=== PATIENT | female | born 1955 | race Caucasian/White ===

== ENCOUNTER 2023-02-20 08:43 | Outpatient (AMB) | payer BC, SELFPAY ==
--- NOTE | 2023-02-20 09:00 | A.OFFPC_ITS ---
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 Physical Grand Scribe Required: No Accompanied by: Self / Same As Patient Allergies No Known Allergies Allergy (Verified 02/20/23 09:17) Medication List - Last Reconciled 02/20/23 by DARIA Beaver alendronate 70 mg PO QWEEK atorvastatin 80 mg PO DAILY Tobacco use date assessed: 02/20/23 Fall risk assessment: No Falls in past year Last assessed Fall Risk: 02/20/23 Dental Screening Dental Screen Date: 02/20/23 Did you have a dental visit in the last 12 months?: Yes Did you have a dental problem in the last 6 months where you did not have access to dental care?: No Was dental information given to patient?: Patient has dentist HPI HPI Comments History of Present Illness Details 67-year-old female new patient presents today to establish care. Past medical history significant for hypercholesteremia, osteoporosis. Patient states ringing in right ear since october, urgent care and was diagnosed with tinnitus. Patient states felt like ear was plugged. Denies ear pain and fevers. Patient does report that she feels like she has been having to listen to the TV louder than normal. On examination bilateral canals clear TMs pearly. Low referred speech and hearing hearing test. Previous pcp: Dr. Levy, [facility] Medical History (Updated 02/20/23 @ 10:26 by DARIA Beaver) Hyperlipidemia Osteoporosis Squamous cell skin cancer, face Surgical History (Updated 02/20/23 @ 09:21 by DARIA Beaver) H/O wisdom tooth extraction Family History (Updated 02/20/23 @ 09:24 by DARIA Beaver) Mother History of open heart surgery Dementia Father Diabetes Brother Leukemia Sister No problems noted. Brother No problems noted. Other Substance abuse Social History (Updated 02/20/23 @ 09:25 by DARIA Beaver) Housing: House Alcohol intake: never Patient Tobacco Use Status: Former Tobacco user Quit Date: 2000 e-Cigarette/Vaping Use: Never Used service: No Current occupational status: employed Cognitive needs: No Hearing needs: No Vision needs: No Questionnaire PHQ-9 Over the last 2 weeks, how often have you been bothered by any of the following problems? 1. Little interest or pleasure in doing things: not at all 2. Feeling down, depressed, or hopeless: not at all 3. Trouble falling or staying asleep, or sleeping too much: not at all 4. Feeling tired or having little energy: not at all 5. Poor appetite or overeating: not at all 6. Feeling bad about yourself - or that you are a failure or have let yourself or your family down: not at all 7. Trouble concentrating on things, such as reading the newspaper or watching television: not at all 8. Moving or speaking so slowly that other people could have noticed. Or the opposite - being so fidgety or restless that you have been moving around a lot more than usual: not at all 9. Thoughts that you would be better off or of hurting yourself in some way: not at all Total score: 0 Depression Screening Interpretation: Positive Source: Developed by Drs. Gordon Beltre, Mara Flores, Keven Galdamez and colleagues, with an educational chanda from [employer]. Thrive Questionnaire Date Thrive assessed: 02/20/23 I am a: Patient What is your living situation today?: I have a steady place to live Within the past 12 months, did the food you bought not last and you didn't have the money to get more?: Never true Within the past 12 months, did you worry whether your food would run out before you got money to buy more?: Never true Do you have trouble paying for medicines?: No Do you have trouble getting transportation to medical appointments?: No Do you have trouble paying your heating and electricity bill?: No Do you have trouble taking care of your child, family member or friend?: No Do you have trouble with day-to-day activities such as bathing, preparing meals, shopping, managing finances, etc.?: No Are you currently unemployed and looking for a job?: No Are you interested in more education?: No Please select the resources that you would like help with: None Currently or been in a relationship where the following occur: no concerns reported AUDIT C Alcohol Use Questionnaire (AUDIT-C) 1. How often do you have a drink containing alcohol?: Never Total Score: 0 SHAYNE-7 AMB Questionnaire SHAYNE-7 Date SHAYNE - 7 assessed: 02/20/23 Feeling nervous, anxious, or on edge: 0 = Not at all Not being able to stop or control worryin = Not at all Worrying too much about different things: 0 = Not at all Trouble relaxin = Not at all Being so restless that it is hard to sit still: 0 = Not at all Becoming easily annoyed or irritable: 0 = Not at all Feeling afraid as if something awful might happen: 0 = Not at all Total SHAYNE-7 score (0-4 normal; 5-9 mild; 10-14 moderate; 15-21 severe): 0 Source: Developed by Drs. Gordon Beltre, Mara Flores, Keven Galdamez and colleagues, with an educational chanda from [employer]. SHAYNE-7 Assessment Billing SHAYNE-7 Assessment Tool: SHAYNE-7 Assessment 32214 Review of Systems Const Denies chills, Denies fatigue, Denies fever(s) and Denies poor appetite Eyes Denies no additional complaints ENT Reports Normal hearing present Card Denies chest pain, Denies syncope, Denies rapid heart rate and Denies dyspnea Resp Denies cough and Denies dyspnea GI Denies change in stool character, Denies constipation, Denies diarrhea, Denies nausea and Denies vomiting Denies urinary frequency, Denies dysuria and Denies urinary urgency Neuro Reports Normal hearing present, Denies confusion and Denies syncope Psych Denies confusion Endo Denies fatigue Physical exam (Primary Care) Vital Signs: Last Vital Signs Pulse 70 02/20/23 09:01 BP 110/78 02/20/23 09:01 Pulse Ox 99 02/20/23 09:01 Oxygen Delivery Method Room Air 02/20/23 09:01 BMI result Body Mass Index 22.3 Tobacco/Smoking Status: Tobacco use Status Tobacco use date assessed 02/20/23 02/20/23 09:12 Patient Tobacco Use Status Former Tobacco user 02/20/23 09:25 e-Cigarette/Vaping Use Never Used 02/20/23 09:25 PHQ-9: PHQ-9 Score PHQ-9: Total score 0 02/20/23 10:28 Depression Screening Interpretation: Positive Thrive Assessment: Date of Thrive Assessment Date Thrive assessed 02/20/23 02/20/23 09:12 Currently or been in a relationship where the following occur: no concerns reported Const General: No confusion Orientation/consciousness: No confusion HENMT Head: Yes normocephalic and Yes atraumatic Eyes Conjunctivae: conjunctivae normal Chest Chest palpation & inspection: normal inspection of the chest Resp Effort & Inspection: normal respiratory effort Auscultation: clear to auscultation bilaterally, no crackles, no rhonchi and no wheezes Cardio Rate: regular rate Rhythm: regular rhythm Heart sounds: S1 normal heart sound present and S2 normal heart sound present GI Inspection: Yes normal to inspection Neuro General: No confusion Cranial nerves: Yes Normal hearing present Extrem General: No edema Assessment and Plan Assessment & Plan (1) Tinnitus, right ear: Code(s): H93.11 - Tinnitus, right ear Plan: Referral entere to speech and hearing for hearing test. (2) Hyperlipidemia: Code(s): E78.5 - Hyperlipidemia, unspecified Plan: Fasting lipid panel ordered. Continue on atorvastatin 80 mg daily, prescription sent to patient's pharmacy. (3) Osteoporosis: Code(s): M81.0 - Age-related osteoporosis without current pathological fracture Plan: Continue on alendronate 70 mg weekly Most recent bone density completed 09/15/22 showed osteopenia Plan Follow up in 2 months for physical exam Orders: Orders Comprehensive [place]. Panel Fast Today E78.5 - Hyperlipidemia, unspecified Lipid Panel Today Z13.220 - Encounter for screening for lipoid disorders TSH reflex Free T4 Today Z13.29 - Encounter for screening for other suspected endocrine disorder Vitamin D 25-OH Total Today M85.80 - Other specified disorders of bone density and structure, unspecified site Complete Blood Count Auto Diff Today Z13.0 - Encounter for screening for diseases of the blood and blood-forming organs and certain disorders involving t he immune mechanism Referrals Speech and Hearing Referral E78.5 - Hyperlipidemia, unspecified, H93.11 - Tinnitus, right ear Endocrinology Referral M81.0 - Age-related osteoporosis without current pathological fracture Medications: New atorvastatin 80 mg PO DAILY 30 tabs 3RF E78.5 - Hyperlipidemia, unspecified Coding Level of Care Code New Pt Level 3 (65629) Diagnoses Tinnitus, right ear H93.11 Hyperlipidemia E78.5 Osteoporosis M81.0 Additional Codes SHAYNE-7 Assessment Billing - SHAYNE-7 Assessment Tool: SHAYNE-7 Assessment 91605 ([id number])
[2023-02-20 09:01] VITALS: BP 110/78; PULSE 70; O2SAT 99; BMI 22.3
== END 2023-02-20 09:42 | disposition home or self-care (01) ==
PROVIDERS: PCP Nurse Practitioner Family; Visit Provider Nurse Practitioner Family
DX: H93.11 Tinnitus, right ear (principal); E78.5 Hyperlipidemia, unspecified; M81.0 Age-related osteoporosis without current pathological fracture
CPT/HCPCS: 99203

== ENCOUNTER 2023-04-21 09:15 | Outpatient (REF) | payer BC, SELFPAY ==
[2023-04-21 11:23] LABS: MANUAL DIFF FLAG NO
[2023-04-21 11:50] LABS: Basophils Absolute Auto 0.1 X10*3/uL (0.0-0.2); Basophils Percent Auto 1.8 % (0-2); Eosinophils Absolute Auto 0.1 X10*3/uL (0.0-0.4); Eosinophils Percent Auto 1.5 % (0-4); Hematocrit 39.9 % (37.0-47.0); Hemoglobin 13.2 g/dl (12.0-16.0); Imm Gran Abs Auto 0.01 X10*3/uL (0.00-0.03); Imm Gran Pct Auto 0.2 % (0.0-0.4); Lymphocytes Absolute Auto 1.9 X10*3/uL (1.2-4.9); Lymphocytes Percent Auto 31.7 % (20-40); Mean Corpuscular HGB Conc 33.1 g/dl (31.0-35.0); Mean Corpuscular Hemoglobin 30.8 pg (27.0-33.0); Mean Platelet Volume 10.4 fL (9.4-12.3); Monocytes Absolute Auto 0.6 X10*3/uL (0.1-1.2); Monocytes Percent Auto 9.2 % (2-11); Neutrophils Absolute Auto 3.4 x10*3/uL (2.0-8.3); Neutrophils Percent Auto 55.6 % (45-73); Platelet Count 370 X10*3/uL (160-400); Red Blood Count 4.29 X10*6/uL (4.20-5.50); Red Cell Distribution Width 13.1 % (11.0-16.0); White Blood Count 6.1 X10*3/uL (4.8-10.8)
[2023-04-21 12:14] LABS: Alanine Aminotransferase 19 U/L (0-31); Albumin Level 4.8 g/dL (3.5-5.0); Alkaline Phosphatase 51 U/L (39-117); Anion Gap 13 (12-20); Aspartate Amino Transferase 22 U/L (5-31); Bilirubin Total 0.7 mg/dL (0.0-1.0); Blood Urea Nitrogen 15 mg/dL (9-16); Carbon Dioxide 27 mmol/L (22-29); Chloride 106 mmol/L (96-108); Cholesterol 196 mg/dL (<200); Creatinine Clr Calc Pharmacy 47.4; Estimated Glomerular Filt Rate > 60; Glucose Fasting 97 mg/dL (60-99); HDL Cholesterol 73 mg/dL (>40); LDL Cholesterol Calculated 110 mg/dL (<100); Potassium 4.6 mmol/L (3.3-5.1); Sodium 141 mmol/L (135-145); Total Protein 7.4 g/dL (6.5-8.0); Triglycerides 67 mg/dL (<150)
[2023-04-21 12:19] LABS: Vitamin D 25-OH Total 29.5 ng/mL (>30)
== END 2023-04-21 09:16 | disposition home or self-care (01) ==
LOC: HO.HMGCLDS 09:15
PROVIDERS: PCP Nurse Practitioner Family; Visit Provider Nurse Practitioner Family
DX: Z13.0 Encounter for screening for diseases of the blood and blood-forming organs and certain disorders involving the immune mechanism (principal); Z13.220 Encounter for screening for lipoid disorders; Z13.29 Encounter for screening for other suspected endocrine disorder; E78.5 Hyperlipidemia, unspecified; M85.80 Other specified disorders of bone density and structure, unspecified site
CPT/HCPCS: 36415; 80053; 80061; 82306; 84443; 85025

== ENCOUNTER 2023-04-24 09:15 | Outpatient (AMB) | payer BC, SELFPAY ==
[2023-04-24 09:22] VITALS: BP 116/68; PULSE 67; O2SAT 100; BMI 23.6
--- NOTE | 2023-04-24 09:22 | A.OFFPC_ITS ---
Vital Signs 04/24/23 09:22 Height 5 ft 1 in Weight 125 lb BMI 23.6 BP 116/68 Blood Pressure Location Lt brachial Position Sitting Pulse 67 Pulse Source Pulse Oximeter Pulse Oximetry (%) 100 Oxygen Delivery Method Room Air Intake Visit Reasons: Annual exam [place] [employer]: Not Required per policy Accompanied by: Self / Same As Patient Allergies No Known Allergies Allergy (Verified 04/24/23 09:22) Tobacco use date assessed: 02/20/23 Fall risk assessment: No Falls in past year Last assessed Fall Risk: 04/24/23 Dental Screening Dental Screen Date: 04/24/23 Did you have a dental visit in the last 12 months?: Yes Did you have a dental problem in the last 6 months where you did not have access to dental care?: No Was dental information given to patient?: Patient has dentist HPI HPI Comments History of Present Illness Details 67-year-old female new patient presents today for physical exam. Past medical history significant for hypercholesteremia, osteoporosis. Patient denies any chest pain, palpitations, shortness of breath and syncope. Pap smear: Completed July 2022, negative Mammogram: Completed 09/15/2022, Bi-rads negative Bone density: Completed 09/15/2022 showed osteoporosis. On alendronate Colonoscopy: [facility] recommended 10 year follow up Eye exam: Recommeded. [facility] Medical History Osteoporosis Squamous cell skin cancer, face Hyperlipidemia Surgical History H/O wisdom tooth extraction Family History Mother History of open heart surgery Dementia Father Diabetes Brother Leukemia Sister No problems noted. Brother No problems noted. Other Substance abuse Social History Housing: House Alcohol intake: never Patient Tobacco Use Status: Former Tobacco user Quit Date: 2000 e-Cigarette/Vaping Use: Never Used service: No Current occupational status: employed Cognitive needs: No Hearing needs: No Vision needs: No Questionnaire PHQ-9 Over the last 2 weeks, how often have you been bothered by any of the following problems? 1. Little interest or pleasure in doing things: not at all 2. Feeling down, depressed, or hopeless: not at all 3. Trouble falling or staying asleep, or sleeping too much: not at all 4. Feeling tired or having little energy: not at all 5. Poor appetite or overeating: not at all 6. Feeling bad about yourself - or that you are a failure or have let yourself or your family down: not at all 7. Trouble concentrating on things, such as reading the newspaper or watching television: not at all 8. Moving or speaking so slowly that other people could have noticed. Or the opposite - being so fidgety or restless that you have been moving around a lot more than usual: not at all 9. Thoughts that you would be better off or of hurting yourself in some way: not at all Total score: 0 Depression Screening Interpretation: Positive Source: Developed by Drs. Gordon Beltre, Mara Flores, Keven Galdamez and colleagues, with an educational chanda from [employer]. Thrive Questionnaire Date Thrive assessed: 02/20/23 AUDIT C Alcohol Use Questionnaire (AUDIT-C) 1. How often do you have a drink containing alcohol?: Never Total Score: 0 SHAYNE-7 AMB Questionnaire SHAYNE-7 Date SHAYNE - 7 assessed: 02/20/23 Source: Developed by Drs. Gordon Beltre, Mara Flores, Keven Galdamez and colleagues, with an educational chanda from [employer]. Review of Systems Const Denies chills, Denies fatigue, Denies fever(s) and Denies poor appetite Eyes Denies no additional complaints ENT Reports Normal hearing present Card Denies chest pain, Denies syncope, Denies rapid heart rate and Denies dyspnea Resp Denies cough and Denies dyspnea GI Denies change in stool character, Denies constipation, Denies diarrhea, Denies nausea and Denies vomiting Denies urinary frequency, Denies dysuria and Denies urinary urgency Neuro Reports Normal hearing present, Denies confusion and Denies syncope Psych Denies confusion Endo Denies fatigue Physical exam (Primary Care) Vital Signs: Last Vital Signs Pulse 67 04/24/23 09:22 BP 116/68 04/24/23 09:22 Pulse Ox 100 04/24/23 09:22 Oxygen Delivery Method Room Air 04/24/23 09:22 BMI result Body Mass Index 23.6 Tobacco/Smoking Status: Tobacco use Status Tobacco use date assessed 02/20/23 04/24/23 09:26 Patient Tobacco Use Status Former Tobacco user 04/24/23 09:26 e-Cigarette/Vaping Use Never Used 04/24/23 09:26 PHQ-9: PHQ-9 Score PHQ-9: Total score 0 04/24/23 09:38 Depression Screening Interpretation: Positive Thrive Assessment: Date of Thrive Assessment Date Thrive assessed 02/20/23 04/24/23 09:26 Const General: No confusion Orientation/consciousness: No confusion HENMT Head: Yes normocephalic and Yes atraumatic Ears: external ears normal and TM's normal bilaterally General nose exam: Normal external nose present and Normal nasal mucous membranes and turbinates present Face and sinus: Yes normal facial exam and Yes sinuses nontender Mouth: moist mucous membranes Throat: Yes tonsils normal Eyes Conjunctivae: conjunctivae normal Sclerae: sclerae normal Pupils: Equal, round and reactive pupils present and Pupils normal by confrontation EOM: EOMs intact bilaterally Direct Ophthalmoscopy: normal light reflex Neck Neck: Yes no lymphadenopathy and Yes supple Thyroid: Thyroid normal Chest Chest palpation & inspection: normal inspection of the chest Resp Effort & Inspection: normal respiratory effort Auscultation: clear to auscultation bilaterally, no crackles, no rhonchi and no wheezes Cardio Rate: regular rate Rhythm: regular rhythm Peripheral pulses: radial pulses present and dorsalis pedis present GI Inspection: Yes normal to inspection Palpation (GI): Soft to palpation, nontender and No hepatosplenomegaly present Auscultation: normoactive bowel sounds Skin General skin exam: no rashes or lesions noted Neuro General: No confusion Cranial nerves: Yes Equal, round and reactive pupils present and Yes Normal hearing present Cognition (Neuro): normal cognition Gait exam (Neuro): Normal gait present Motor exam (neuro): 5/5 motor strength present throughout Deep tendon reflexes (DTR's): Right brachioradialis reflex intensity grade: 2+, Left brachioradialis reflex intensity grade: 2+, Right patellar reflex intensity grade: 2+ and Left patellar reflex intensity grade: 2+ Extrem General: No edema Assessment and Plan Assessment & Plan (1) Hyperlipidemia: Code(s): E78.5 - Hyperlipidemia, unspecified Plan: Continue on atorvastatin 80 mg daily. Continue follow low-cholesterol diet. (2) Osteoporosis: Code(s): M81.0 - Age-related osteoporosis without current pathological fracture Plan: Continue on the alendronate. Previously referred to Endocrinology to establish care. (3) Physical exam, annual: Code(s): Z00.00 - Encounter for general adult medical examination without abnormal findings Plan: Follow-up in 1 year physical exam. Plan Follow-up in 6 months. Coding Level of Care Code Est Pt Prev Care >65y(22355) Diagnoses Hyperlipidemia E78.5 Osteoporosis M81.0 Physical exam, annual Z00.00
== END 2023-04-24 10:01 | disposition home or self-care (01) ==
PROVIDERS: PCP Nurse Practitioner Family; Visit Provider Nurse Practitioner Family
DX: E78.5 Hyperlipidemia, unspecified (principal); M81.0 Age-related osteoporosis without current pathological fracture; Z00.00 Encounter for general adult medical examination without abnormal findings
CPT/HCPCS: 99397

== ENCOUNTER 2023-06-28 10:19 | Outpatient (REF) | payer BC, SELFPAY | END 2023-06-28 10:20 | disposition home or self-care (01) | LOC: HO.SH 10:19 | PROVIDERS: Visit Provider Nurse Practitioner Family | DX: Z01.118 Encounter for examination of ears and hearing with other abnormal findings (principal); H93.293 Other abnormal auditory perceptions, bilateral; H93.11 Tinnitus, right ear | CPT/HCPCS: 92557; 92567; 92625 ==

== ENCOUNTER 2023-10-07 09:13 | Outpatient (AMB) | payer BC, SELFPAY ==
[2023-10-07 09:32] VITALS: BP 124/72; PULSE 87; O2SAT 99; BMI 23.9
--- NOTE | 2023-10-07 09:35 | MHC.OFFWIV ---
Intake Vital Signs 10/07/23 09:32 Height 5 ft Weight 122 lb 4 oz BMI 23.9 BP 124/72 Blood Pressure Location Lt brachial Position Sitting Pulse 87 Pulse Source Pulse Oximeter Pulse Oximetry (%) 99 Oxygen Delivery Method Room Air Intake Visit Reasons: EP RT lower side pain Intake Note: Patient is here with lower right side back pain for over a week, noticed after drinking warm milk to try to sleep, describes as sharp pain. Patient Tobacco Use Status: Former Tobacco user Quit Date: 2000 Allergies No Known Allergies Allergy (Verified 10/07/23 10:10) Medication List - Last Reconciled 10/07/23 by Barb Fortune CNP alendronate 70 mg PO QWEEK atorvastatin 80 mg PO DAILY Do you need a note to return to daycare/school/sports/work: No HPI HPI Comments History of Present Illness Details 68 - year-old female presents today for c/o right sided low back pain x 1 week. Past medical history significant for hypercholesteremia, osteoporosis. She reports initial pain came on after drinking milk two weeks ago, and went away but then returned x 2 days ago after drinking milk. She reports right sided back pain that is sharp, intermittent, and non radiating. She denies recent fall, trauma or straining a muscle. She also denies fever, chills, CP, SOB, dizziness, palpitations, abdominal pain, nausea, vomiting, constipation, diarrhea, dysuria, or hematuria. [facility] Medical History Osteoporosis Squamous cell skin cancer, face Hyperlipidemia Surgical History H/O wisdom tooth extraction Family History Mother History of open heart surgery Dementia Father Diabetes Brother Leukemia Sister No problems noted. Brother No problems noted. Other Substance abuse Social History Housing: House Alcohol intake: never Patient Tobacco Use Status: Former Tobacco user Quit Date: 2000 e-Cigarette/Vaping Use: Never Used service: No Current occupational status: employed Cognitive needs: No Hearing needs: No Vision needs: No Review of Systems Const All systems reviewed & are unremarkable except as noted in HPI and below Physical Exam Vital Signs: Last Vital Signs Pulse 87 10/07/23 09:32 BP 124/72 10/07/23 09:32 Pulse Ox 99 10/07/23 09:32 Oxygen Delivery Method Room Air 10/07/23 09:32 BMI result Body Mass Index 23.9 Const General: healthy appearing, no acute distress and well developed Nutritional Appearance: average body habitus Orientation/consciousness: patient oriented x3 Limitations: no limitations HEENT Head: Yes normal to inspection, Yes normocephalic and Yes atraumatic Ears: hearing grossly normal bilaterally Eyes General: appearance normal, both eyes and all related structures Neck Neck: Yes normal visual inspection, Yes full ROM, Yes no lymphadenopathy, Yes no meningeal signs, Yes trachea midline and Yes supple Chest Chest palpation & inspection: normal inspection of the chest Resp Effort & Inspection: normal respiratory effort, no cough, no respiratory distress and not tachypneic Auscultation: clear to auscultation bilaterally Cardio Rate: regular rate Rhythm: regular rhythm Heart sounds: S1 normal heart sound present, S2 normal heart sound present and no murmurs Peripheral pulses: Peripheral pulses 2+ throughout GI Inspection: Yes normal to inspection Palpation (GI): Soft to palpation, nontender, no guarding and No hepatosplenomegaly present Auscultation: normal bowel sounds General: Yes no CVA tenderness Back/Spine/Pelvis Back: no CVA tenderness Thoracic/Lumbar Spine: thoracic and lumbar spine normal to inspection, straight leg raise negative bilaterally, No mass, No thoracic spinal tenderness and other (right lateral latissimus dorsi muscle tenderness, no mass palp) Pelvis: no pain with anterior-posterior compression, no pain with lateral compression, no sciatic notch tenderness and no tenderness over symphysis pubis Skin General skin exam: no rashes or lesions noted and turgor normal Neuro General: patient oriented x3, gait normal, moves all extremities and no meningeal signs Extrem General: Yes normal to inspection, Yes capillary refill normal, Yes no clubbing, cyanosis or edema and Yes no pedal edema Psych Appearance: well kempt Mental Status: mental status grossly normal Speech and movement: Normal speech and movement present Affect: normal affect Attitude: cooperative Assessment & Plan Assessment & Plan (1) Strain of right latissimus dorsi muscle: Code(s): S29.012A - Strain of muscle and tendon of back wall of thorax, initial encounter Plan: 68-year-old female seen today in walk-in clinic for complaint of intermittent right lateral low back pain x1 week, she denies recent fall, trauma, or straining injury. She is concerned that she could have a gallstone. Not likely gallstone in this area. We did discuss that could be possibly a kidney stone. Physical exam with tenderness to right latissimus dorsi muscle, no swelling, mass, or increased warmth. Discussed pain could be related to strained muscle or secondary to kidney stone. Educated on treatment for muscle strain. 1. Tylenol 1000 mg, orally, every 6 hours as needed for muscle pain. 2. Lidocaine patch, available [id number] and should be apply to area of maximal tenderness as directed on the outside packaging. 3. Ibuprofen 400 mg, orally with milk or food, every 6 hours as needed for muscle pain. 4. Ice to muscle pain twice a day, may alternate w/ heat therapy. Call office, or go to ER for acute worsening of symptoms. (2) Kidney stone on right side: Code(s): N20.0 - Calculus of kidney Plan: Education provided on kidney stones, encouraged: To drink plenty of water, lemon water to flush stone out. Take Tylenol alternating with Ibuprofen for pain control If symptoms get worse, or changes in urine, not able to void, blood in her urine to go to the ER for risk of ureter obstruction. Encouraged to follow up with PCP Coding Level of Care Code Est Pt Level 4 (28233) Diagnoses Strain of right latissimus dorsi muscle S29.012A Kidney stone on right side N20.0
== END 2023-10-07 10:30 | disposition home or self-care (01) ==
PROVIDERS: PCP Internal Medicine; Visit Provider Nurse Practitioner Acute Care
DX: S29.012A Strain of muscle and tendon of back wall of thorax, initial encounter (principal); N20.0 Calculus of kidney
CPT/HCPCS: 99214

== ENCOUNTER 2023-10-10 08:36 | Outpatient (REF) | payer BC, SELFPAY ==
--- NOTE | ~2023-10-10 | XR_ITS ---
EXAMINATION: XR ABDOMEN KUB CLINICAL INDICATION: Renal calculus COMPARISON: None available. TECHNIQUE: AP view of the abdomen. FINDINGS: Lung bases are normal. Bowel gas pattern is normal. No evidence of renal calculi. There appear to be a few small phleboliths within the pelvis. Disc degenerative change in the lumbar spine appears to be worst at the L4-L5 level. XR/XR KUB IMPRESSION: No acute radiographic abnormalities within the abdomen. No evidence of renal stones.
== END 2023-10-10 08:37 | disposition home or self-care (01) ==
LOC: HO.HMGCX 08:36
PROVIDERS: PCP Internal Medicine; Visit Provider Internal Medicine
DX: N20.0 Calculus of kidney (principal)
CPT/HCPCS: 74018

== ENCOUNTER 2023-10-23 14:43 | Outpatient (REF) | payer BC, SELFPAY ==
--- NOTE | ~2023-10-23 | US_ITS ---
EXAMINATION: US RETROPERITONEAL LIMITED (RENAL ONLY) CLINICAL INFORMATION: Calculus of kidney. COMPARISON: X-ray abdomen KUB 10/10/2023. TECHNIQUE: Real-time imaging of the kidneys. FINDINGS: RIGHT KIDNEY: 9.9 x 3.5 x 4.0 cm (SAG x AP x TRV). The kidney is normal in size, contour, and echogenicity. Renal cortical thickness is normal. No calculi or focal parenchymal lesions. No hydronephrosis. LEFT KIDNEY: 9.9 x 4.6 x 3.9 cm (SAG x AP x TRV). The kidney is normal in size, contour, and echogenicity. Renal cortical thickness is normal. No hydronephrosis. There is an upper pole and 0.4 x 1.3 x 1.1 cm simple cyst for which no further imaging is recommended. There is a questionable mid pole small nonobstructing calculus which measures 0.3 x 0.2 x 0.2 cm. US/US renal BI IMPRESSION: There is a questionable left renal midpole small nonobstructing 0.3 cm calculus. No hydronephrosis.
== END 2023-10-23 14:44 | disposition home or self-care (01) ==
LOC: HO.US 14:43
PROVIDERS: PCP Internal Medicine; Visit Provider Internal Medicine
DX: N20.0 Calculus of kidney (principal)
CPT/HCPCS: 76775

== ENCOUNTER 2023-11-09 16:35 | Outpatient (AMB) | payer BC, SELFPAY ==
[2023-11-09 16:51] VITALS: BP 112/72; BMI 22.8
--- NOTE | 2023-11-09 16:51 | MHC.PC.OV ---
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 Required: No Accompanied by: Self / Same As Patient Allergies No Known Allergies Allergy (Verified 11/09/23 17:18) Medication List - Last Reconciled 11/09/23 by Eleanor Gauthier MD alendronate 70 mg PO QWEEK atorvastatin 80 mg PO DAILY Tobacco use date assessed: 11/09/23 Fall risk assessment: No Falls in past year Last assessed Fall Risk: 11/09/23 Dental Screening Dental Screen Date: 11/09/23 Did you have a dental visit in the last 12 months?: Yes Did you have a dental problem in the last 6 months where you did not have access to dental care?: No Was dental information given to patient?: Patient has dentist HPI HPI Comments History of Present Illness Details This is a 68-year-old female with osteoporosis and hyperlipidemia that comes today to establish care. Osteoporosis is follow by Endocrinology and is doing well on alendronate with no side effects. On statins for her cholesterol and lipid panel was order. She denies any chest pain or shortness of breath. [facility] Medical History (Updated 11/09/23 @ 17:25 by Eleanor Gauthier MD) Osteoporosis Hyperlipidemia Surgical History (Updated 11/09/23 @ 17:25 by Eleanor Gauthier MD) Squamous cell skin cancer, face H/O wisdom tooth extraction Family History (Updated 11/09/23 @ 17:26 by Eleanor Gauthier MD) Mother History of open heart surgery Dementia Father Diabetes Brother Leukemia Sister No problems noted. Brother No problems noted. Other Substance abuse Social History Housing: House Alcohol intake: former Patient Tobacco Use Status: Former Tobacco user Quit Date: 2000 e-Cigarette/Vaping Use: Never Used Second Hand Smoke Exposure: No service: No Current occupational status: employed Current occupational exposures/hazards: No Cognitive needs: No Hearing needs: No Vision needs: Yes Questionnaire PHQ-9 Over the last 2 weeks, how often have you been bothered by any of the following problems? 1. Little interest or pleasure in doing things: not at all 2. Feeling down, depressed, or hopeless: not at all 3. Trouble falling or staying asleep, or sleeping too much: not at all 4. Feeling tired or having little energy: not at all 5. Poor appetite or overeating: not at all 6. Feeling bad about yourself - or that you are a failure or have let yourself or your family down: not at all 7. Trouble concentrating on things, such as reading the newspaper or watching television: not at all 8. Moving or speaking so slowly that other people could have noticed. Or the opposite - being so fidgety or restless that you have been moving around a lot more than usual: not at all 9. Thoughts that you would be better off or of hurting yourself in some way: not at all Total score: 0 Depression Screening Interpretation: Negative Depression Screening Done: Yes 84795 - PHQ-9 Billing: Yes Source: Developed by Drs. Gordon Beltre, Mara Flores, Keven Galdamez and colleagues, with an educational chanda from [employer]. Thrive Questionnaire Date Thrive assessed: 11/09/23 I am a: Patient What is your living situation today?: I have a steady place to live Within the past 12 months, did the food you bought not last and you didn't have the money to get more?: Never true Within the past 12 months, did you worry whether your food would run out before you got money to buy more?: Never true Do you have trouble paying for medicines?: No Do you have trouble getting transportation to medical appointments?: No Do you have trouble paying your heating and electricity bill?: No Do you have trouble taking care of your child, family member or friend?: No Do you have trouble with day-to-day activities such as bathing, preparing meals, shopping, managing finances, etc.?: No Are you currently unemployed and looking for a job?: No Are you interested in more education?: No Please select the resources that you would like help with: None Currently or been in a relationship where the following occur: no concerns reported THRIVE Score: 0 AUDIT C Alcohol Use Questionnaire (AUDIT-C) 1. How often do you have a drink containing alcohol?: Never Total Score: 0 SHAYNE-7 AMB Questionnaire SHAYNE-7 Date SHAYNE - 7 assessed: 11/09/23 Feeling nervous, anxious, or on edge: 0 = Not at all Not being able to stop or control worryin = Not at all Worrying too much about different things: 0 = Not at all Trouble relaxin = Not at all Being so restless that it is hard to sit still: 0 = Not at all Becoming easily annoyed or irritable: 0 = Not at all Feeling afraid as if something awful might happen: 0 = Not at all Total SHAYNE-7 score (0-4 normal; 5-9 mild; 10-14 moderate; 15-21 severe): 0 Source: Developed by Drs. Gordon Beltre, Mara Flores, Keven Galdamez and colleagues, with an educational chanda from [employer]. SHAYNE-7 Assessment Billing SHAYNE-7 Assessment Tool: SHAYNE-7 Assessment 59210 Review of Systems Const All systems reviewed & are unremarkable except as noted in HPI and below Eyes Reports no additional complaints, Denies change in vision and Denies other visual disturbances Card Denies chest pain at rest, Denies chest pain with activity, Denies edema, Denies irregular heart rhythm, Denies claudication, Denies dyspnea, Denies dyspnea on exertion, Denies orthopnea, Denies paroxysmal nocturnal dyspnea and Denies slow heart rate Resp Denies cough, Denies dyspnea and Denies dyspnea on exertion Physical exam (Primary Care) Vital Signs: Last Vital Signs BP 108/78 11/09/23 17:37 BMI result Body Mass Index 22.8 Tobacco/Smoking Status: Tobacco use Status Tobacco use date assessed 11/09/23 11/09/23 16:58 Patient Tobacco Use Status Former Tobacco user 11/09/23 16:58 e-Cigarette/Vaping Use Never Used 11/09/23 16:58 PHQ-9: PHQ-9 Score PHQ-9: Total score 0 11/09/23 17:21 Depression Screening Interpretation: Negative Thrive Assessment: Date of Thrive Assessment Date Thrive assessed 11/09/23 11/09/23 16:59 Currently or been in a relationship where the following occur: no concerns reported Resp Effort & Inspection: normal respiratory effort Auscultation: clear to auscultation bilaterally Cardio Jugular venous distension: no JVD Rate: regular rate Rhythm: regular rhythm Heart sounds: S1 normal heart sound present and S2 normal heart sound present Extrem General: Yes full ROM Assessment and Plan Assessment & Plan (1) Osteoporosis: Comment: Follow by Dr. Venegas Code(s): M81.0 - Age-related osteoporosis without current pathological fracture Plan: Continue alendronate. Follow-up with endocrinology. (2) Hyperlipidemia: Code(s): E78.5 - Hyperlipidemia, unspecified Plan: Continue statins. Repeat lipid panel. Orders: Orders Lipid Panel 4 Months E78.5 - Hyperlipidemia, unspecified Comprehensive [place]. Panel Fast 4 Months M81.0 - Age-related osteoporosis without current pathological fracture Coding Level of Care Code Est Pt Level 3 (34129) Diagnoses Osteoporosis M81.0 Hyperlipidemia E78.5 Additional Codes SHAYNE-7 Assessment Billing - SHAYNE-7 Assessment Tool: SHAYNE-7 Assessment [id number] ([id number]) Time Spent (min) 19
[2023-11-09 17:37] VITALS: BP 108/78
== END 2023-11-09 17:42 | disposition home or self-care (01) ==
PROVIDERS: PCP Internal Medicine; Visit Provider Internal Medicine
DX: M81.0 Age-related osteoporosis without current pathological fracture (principal); E78.5 Hyperlipidemia, unspecified
CPT/HCPCS: 99213

== ENCOUNTER 2024-03-27 09:34 | Outpatient (AMB) | payer BC, SELFPAY ==
--- NOTE | 2024-03-27 09:38 | MHC.PC.OV ---
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 Mammogram done 2022 and she will call for an appointment at [facility]. Colonoscopy done 2020 and as per patient he was normal and next colonoscopy should be 2030. Pap smear done 2022. No chest pain or shortness on breath. No acute complaints. [facility] Medical History (Updated 03/27/24 @ 10:09 by Eleanor Gauthier MD) Osteoporosis Hyperlipidemia Surgical History (Updated 03/27/24 @ 09:57 by Eleanor Gauthier MD) H/O colonoscopy Squamous cell skin cancer, face H/O wisdom tooth extraction Family History Mother History of open heart surgery Dementia Father Diabetes Brother Leukemia Sister No problems noted. Brother No problems noted. Other Substance abuse Social History Housing: House Alcohol intake: former Patient Tobacco Use Status: Former Tobacco user e-Cigarette/Vaping Use: Never Used Second Hand Smoke Exposure: No service: No Current occupational status: employed Current occupational exposures/hazards: No Cognitive needs: No Hearing needs: No Vision needs: Yes Questionnaire PHQ-9 Over the last 2 weeks, how often have you been bothered by any of the following problems? 1. Little interest or pleasure in doing things: not at all 2. Feeling down, depressed, or hopeless: not at all 3. Trouble falling or staying asleep, or sleeping too much: not at all 4. Feeling tired or having little energy: not at all 5. Poor appetite or overeating: not at all 6. Feeling bad about yourself - or that you are a failure or have let yourself or your family down: not at all 7. Trouble concentrating on things, such as reading the newspaper or watching television: not at all 8. Moving or speaking so slowly that other people could have noticed. Or the opposite - being so fidgety or restless that you have been moving around a lot more than usual: not at all 9. Thoughts that you would be better off or of hurting yourself in some way: not at all Total score: 0 Depression Screening Interpretation: Negative Depression Screening Done: Yes 05634 - PHQ-9 Billing: Yes Source: Developed by Drs. Gordon Beltre, Mara Flores, Keven Galdamez and colleagues, with an educational chanda from [employer]. Thrive Questionnaire Date Thrive assessed: 11/09/23 I am a: Patient What is your living situation today?: I have a steady place to live Within the past 12 months, did the food you bought not last and you didn't have the money to get more?: Never true Within the past 12 months, did you worry whether your food would run out before you got money to buy more?: Never true Do you have trouble paying for medicines?: No Do you have trouble getting transportation to medical appointments?: No Do you have trouble paying your heating and electricity bill?: No Do you have trouble taking care of your child, family member or friend?: No Do you have trouble with day-to-day activities such as bathing, preparing meals, shopping, managing finances, etc.?: No Are you currently unemployed and looking for a job?: No Are you interested in more education?: Yes Please select the resources that you would like help with: None Currently or been in a relationship where the following occur: No concerns reported THRIVE Score: 0 AUDIT C Alcohol Use Questionnaire (AUDIT-C) 1. How often do you have a drink containing alcohol?: Never Total Score: 0 Score Reviewed/Action Taken: No SHAYNE-7 AMB Questionnaire SHAYNE-7 Date SHAYNE - 7 assessed: 11/09/23 Feeling nervous, anxious, or on edge: 0 = Not at all Not being able to stop or control worryin = Not at all Worrying too much about different things: 0 = Not at all Trouble relaxin = Not at all Being so restless that it is hard to sit still: 0 = Not at all Becoming easily annoyed or irritable: 0 = Not at all Feeling afraid as if something awful might happen: 0 = Not at all Total SHAYNE-7 score (0-4 normal; 5-9 mild; 10-14 moderate; 15-21 severe): 0 Source: Developed by Drs. Gordon Beltre, Mara Flores, Keven Galdamez and colleagues, with an educational chanda from [employer]. SHAYNE-7 Assessment Billing SHAYNE-7 Assessment Tool: SHAYNE-7 Assessment 31673 Review of Systems Const All systems reviewed & are unremarkable except as noted in HPI and below ENT Reports tinnitus Card Denies chest pain at rest, Denies chest pain with activity, Denies edema, Denies irregular heart rhythm, Denies claudication, Denies dyspnea, Denies dyspnea on exertion, Denies orthopnea, Denies paroxysmal nocturnal dyspnea and Denies slow heart rate Resp Denies cough, Denies dyspnea and Denies dyspnea on exertion GI Denies abdominal pain, Denies change in bowel habits, Denies excessive flatus, Denies nausea and Denies vomiting Denies urinary incontinence, Denies urinary hesitancy and Denies urinary urgency Neuro Denies lack of coordination Physical exam (Primary Care) Vital Signs: Last Vital Signs BP 122/76 03/27/24 09:39 BMI result Body Mass Index 23.2 Tobacco/Smoking Status: Tobacco use Status Tobacco use date assessed 11/09/23 03/27/24 09:40 Patient Tobacco Use Status Former Tobacco user 03/27/24 09:40 e-Cigarette/Vaping Use Never Used 03/27/24 09:40 PHQ-9: PHQ-9 Score PHQ-9: Total score 0 03/27/24 10:14 Depression Screening Interpretation: Negative Thrive Assessment: Date of Thrive Assessment Date Thrive assessed 11/09/23 03/27/24 09:40 Currently or been in a relationship where the following occur: No concerns reported HENMT Head: Yes normal to inspection, Yes normocephalic and Yes atraumatic Ears: external ears normal Eyes General: appearance normal, both eyes and all related structures Eyelids: Yes eyelids normal Conjunctivae: conjunctivae normal Neck Neck: Yes normal visual inspection and Yes supple Resp Effort & Inspection: normal respiratory effort Auscultation: clear to auscultation bilaterally Cardio Jugular venous distension: no JVD Rate: regular rate Rhythm: regular rhythm Heart sounds: S1 normal heart sound present and S2 normal heart sound present GI Inspection: Yes normal to inspection Palpation (GI): Soft to palpation and nontender Auscultation: normal bowel sounds Skin General skin exam: no rashes or lesions noted Neuro General: no focal motor deficits Extrem General: Yes full ROM Psych Appearance: grossly normal Immunizations pneumoc 20-deborah conj-dip cr(PF) 0.5 mL IM syringe Performing Provider: Eleanor Gauthier MD Performing Location: [facility] Administered by: RYAN Parker on 03/27/24 10:15 Dose Route Admin Location Dispensed Lot Number Expiration Date [employer] Supervisor 0.5 mL IM Left Deltoid 0.5 mL [id number] 12/29/24 Alitalia VIS Given Date VIS Provided VIS Publication Date 03/27/24 Single Vaccine 21 Eligibility Eligibility Date Funding Source Not [facility] Eligible 03/27/24 Private Assessment and Plan Assessment & Plan (1) Physical exam: Code(s): Z00.00 - Encounter for general adult medical examination without abnormal findings Plan: Repeat in a year. Orders: Orders Comprehensive [place]. Panel Fast Today Z00.00 - Encounter for general adult medical examination without abnormal findings Lipid Panel Today E78.5 - Hyperlipidemia, unspecified, Z00.00 - Encounter for general adult medical examination without abnormal findings Pneumococcal 20 Immunization Today Z23 - Encounter for immunization Coding Level of Care Code Est Pt Prev Care >65y(06324) Diagnoses Physical exam Z00.00 Additional Codes SHAYNE-7 Assessment Billing - SHAYNE-7 Assessment Tool: SHANYE-7 Assessment 26057 ([id number]) Time Spent (min) 30
[2024-03-27 09:39] VITALS: BP 122/76; BMI 23.2
== END 2024-03-27 10:18 | disposition home or self-care (01) ==
PROVIDERS: PCP Internal Medicine; Visit Provider Internal Medicine
DX: Z00.00 Encounter for general adult medical examination without abnormal findings (principal); Z23 Encounter for immunization
CPT/HCPCS: 90471; 90677; 99397

== ENCOUNTER 2025-04-03 07:34 | Outpatient (AMB) | payer BC, SELFPAY ==
[2025-04-03 07:39] VITALS: BP 124/76; PULSE 76; O2SAT 99; BMI 22.7
--- NOTE | 2025-04-03 07:39 | A.OFFPC_ITS ---
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 Accompanied by: Self / Same As Patient Allergies No Known Allergies Allergy (Verified 04/03/25 07:46) Medication List - Last Reconciled 04/03/25 by Eleanor Gauthier MD alendronate 70 mg PO QWEEK atorvastatin 80 mg PO DAILY Tobacco use date assessed: 04/03/25 Fall risk assessment: No Falls in past year Last assessed Fall Risk: 04/03/25 Dental Screening Dental Screen Date: 04/03/25 Did you have a dental visit in the last 12 months?: Yes Did you have a dental problem in the last 6 months where you did not have access to dental care?: No Was dental information given to patient?: Patient has dentist HPI HPI Comments History of Present Illness Details The patient is a 69-year-old female presenting for a physical exam and management of chronic conditions. She has a history of osteoporosis, managed by an lawn care technician with alendron ate therapy. A DEXA scan was performed this year to monitor bone density. The patient reports the recent onset of itchy vesicles on the left side of her abdomen, diagnosed as herpes zoster. The rash started less than 24 hours ago, and she denies any associated pain. Valacyclovir treatment has been initiated to manage the condition. She also has right 5th toenail onychogryphosis and will be referred to Podiatry. Preventative care measures include a pneumonia vaccination last year, a mammogram and pap smear in 2022, both of which were negative. - Pneumonia vaccination administered las t year - Mammogram conducted in 2024 - Pap smear conducted in 2022, result ne gative - DEXA scan performed this year - Colonoscopy done 2020 and next one basil ul[facility] be [facility] Medical History Osteoporosis Hyperlipidemia Surgical History H/O colonoscopy Squamous cell skin cancer, face H/O wisdom tooth extraction Family History Mother History of open heart surgery Dementia Father Diabetes Brother Leukemia Sister No problems noted. Brother No problems noted. Other Substance abuse Social History Housing: House Alcohol intake: former Patient Tobacco Use Status: Former Tobacco user Tobacco use type: Cigarette e-Cigarette/Vaping Use: Never Used Second Hand Smoke Exposure: No service: No Current occupational status: employed Current occupational exposures/hazards: No Cognitive needs: No Hearing needs: No Vision needs: Yes Questionnaire PHQ-9 Over the last 2 weeks, how often have you been bothered by any of the following problems? 1. Little interest or pleasure in doing things: not at all 2. Feeling down, depressed, or hopeless: not at all 3. Trouble falling or staying asleep, or sleeping too much: not at all 4. Feeling tired or having little energy: not at all 5. Poor appetite or overeating: not at all 6. Feeling bad about yourself - or that you are a failure or have let yourself or your family down: not at all 7. Trouble concentrating on things, such as reading the newspaper or watching television: not at all 8. Moving or speaking so slowly that other people could have noticed. Or the opposite - being so fidgety or restless that you have been moving around a lot more than usual: not at all 9. Thoughts that you would be better off or of hurting yourself in some wa y: not at all Total score: 0 Depression Screening Interpretation: Negative Depression Screening Done: Yes 51875 - PHQ-9 Billing: Yes Source: Developed by Drs. Gordon Beltre, Mara Flores, Keven Galdamez and colleagues, with an educational chanda from [employer]. Thrive Questionnaire Date Thrive assessed: 04/03/25 I am a: Patient What is your living situation today?: I have a steady place to live Within the past 12 months, did the food you bought not last and you didn't have the money to get more?: Never true Within the past 12 months, did you worry whether your food would run out before you got money to buy more?: Never true Do you have trouble paying for medicines?: No Do you have trouble getting transportation to medical appointments?: No Do you have trouble paying your heating and electricity bill?: No Do you have trouble taking care of your child, family member or friend?: No Do you have trouble with day-to-day activities such as bathing, preparing meals, shopping, managing finances, etc.?: No Are you currently unemployed and looking for a job?: No Are you interested in more education?: Yes Please select the resources that you would like help with: None Currently or been in a relationship where the following occur: No concerns reported THRIVE Score: 0 AUDIT C Alcohol Use Questionnaire (AUDIT-C) 1. How often do you have a drink containing alcohol?: Never 3. How often do you have six or more drinks on one occasion?: Never Total Score: 0 Score Reviewed/Action Taken: No SHAYNE-7 AMB Questionnaire SHAYNE-7 Date SHAYNE - 7 assessed: 04/03/25 Feeling nervous, anxious, or on edge: 0 = Not at all Not being able to stop or control worryin = Not at all Worrying too much about different things: 0 = Not at all Trouble relaxin = Not at all Being so restless that it is hard to sit still: 0 = Not at all Becoming easily annoyed or irritable: 0 = Not at all Feeling afraid as if something awful might happen: 0 = Not at all Total SHAYNE-7 score (0-4 normal; 5-9 mild; 10-14 moderate; 15-21 severe): 0 Source: Developed by Drs. Gordon Beltre, Mara Flores, Keven Galdamez and colleagues, with an educational chanda from [employer]. SHAYNE-7 Assessment Billing SHAYNE-7 Assessment Tool: SHAYNE-7 Assessment 07941 Review of Systems Const All systems reviewed & are unremarkable except as noted in HPI and below Card Denies chest pain at rest, Denies chest pain with activity, Denies edema, Denies irregular heart rhythm, Denies claudication, Denies dyspnea, Denies dyspnea on exertion, Denies orthopnea, Denies paroxysmal nocturnal dyspnea and Denies slow heart rate Resp Denies cough, Denies dyspnea and Denies dyspnea on exertion GI Denies abdominal pain, Denies change in bowel habits, Denies excessive flatus, Denies nausea and Denies vomiting Physical exam (Primary Care) Vital Signs: Last Vital Signs Pulse 76 04/03/25 07:39 BP 124/76 04/03/25 07:39 Pulse Ox 99 04/03/25 07:39 Oxygen Delivery Method Room Air 04/03/25 07:39 BMI result Body Mass Index 22.7 Tobacco/Smoking Status: Tobacco use Status Tobacco use date assessed 04/03/25 04/03/25 07:43 Patient Tobacco Use Status Former Tobacco user 04/03/25 07:43 Tobacco use type Cigarette 04/03/25 07:43 e-Cigarette/Vaping Use Never Used 04/03/25 07:43 PHQ-9: PHQ-9 Score PHQ-9: Total score 0 04/03/25 08:10 Depression Screening Interpretation: Negative Thrive Assessment: Date of Thrive Assessment Date Thrive assessed 04/03/25 04/03/25 07:43 Currently or been in a relationship where the following occur: No concerns reported Const Orientation/consciousness: patient oriented x3 HENMT Head: Yes normal to inspection, Yes normocephalic and Yes atraumatic Ears: external ears normal Eyes General: appearance normal, both eyes and all related structures Eyelids: Yes eyelids normal Conjunctivae: conjunctivae normal Neck Neck: Yes normal visual inspection and Yes supple Resp Effort & Inspection: normal respiratory effort Auscultation: clear to auscultation bilaterally Cardio Jugular venous distension: no JVD Rate: regular rate Rhythm: regular rhythm Heart sounds: S1 normal heart sound present and S2 normal heart sound present GI Inspection: Yes normal to inspection Palpation (GI): Soft to palpation and nontender Auscultation: normal bowel sounds Skin Other: onychogriposis in right 5th toenail Neuro General: patient oriented x3 and no focal motor deficits Extrem General: Yes full ROM Psych Appearance: grossly normal Immunizations Boostrix Tdap 2.5 Lf unit-8 mcg-5 Lf/0.5 mL intramuscular syringe Performing Provider: Eleanor Gauthier MD [facility] Administered by: Rita Becerra CMA on 04/03/25 08:12 Dose Route Admin Location Dispensed Lot Number Expiration Date [facility] [employer] 0.5 mL IM Right Deltoid 0.5 mL [id number] 06/03/27 45837-663-14 [employer] Total Dispensed Waste 0.5 mL 0 % VIS Given Date VIS Provided VIS Publication Date 04/03/25 Single Vaccine 21 Eligibility Eligibility Date Funding Source Not [facility] Eligible 04/03/25 Private Coding Level of Care Code Est Pt Level 3 (75259) Est Pt Prev Care >65y(70178) Diagnoses Physical exam Z00.00 Onychogryposis L60.2 Herpes zoster B02.9 Additional Codes PHQ-9 - 44441 - PHQ-9 Billing: Yes ([id number]) SHAYNE-7 Assessment Billing - SHAYNE-7 Assessment Tool: SHAYNE-7 Assessment 54968 ([id number]) Time Spent (min) 35 Assessment & Plan Assessment & Plan (1) Physical exam: Code(s): Z00.00 - Encounter for general adult medical examination without abnormal findings Category: Medical (2) Onychogryposis: Code(s): L60.2 - Onychogryphosis Category: Medical (3) Herpes zoster: Code(s): B02.9 - Zoster without complications Category: Medical Plan Plan 1. Encounter for general adult medical examination without abnormal findings Z00.00 Repeat in a year. 2. Zoster without complications B02.9 The patient presented with itchy vesicles on the left side of the abdomen, diagnosed as herpes zoster. Valacyclovir treatment was initiated, and the rash started less than 24 hours ago. 3. Onychogryphosis L60.2 Refer to podiatry Orders: Orders Comprehensive [place]. Panel Fast Today Z00.00 - Encounter for general adult medical examination without abnormal findings Lipid Panel Today E78.5 - Hyperlipidemia, unspecified TDaP Immunization Today Z23 - Encounter for immunization Referrals Podiatry Referral L60.2 - Onychogryphosis Medications: New valacyclovir 1,000 mg PO Q8H 7 days 21 tabs 0RF B02.9 - Zoster without complications valacyclovir 1,000 mg PO Q8H 21 tabs 0RF 7 days B02.9 - Zoster without complications
== END 2025-04-03 08:19 | disposition home or self-care (01) ==
LOC: HO.HMCH 07:35
PROVIDERS: PCP Internal Medicine; Visit Provider Internal Medicine
DX: Z00.00 Encounter for general adult medical examination without abnormal findings (principal); L60.2 Onychogryphosis; B02.9 Zoster without complications; Z23 Encounter for immunization

== ENCOUNTER → 2025-04-03 07:34 | Outpatient (BNVA) | payer BC, SELFPAY | PROVIDERS: PCP Internal Medicine; Visit Provider Internal Medicine | DX: Z00.00 Encounter for general adult medical examination without abnormal findings (principal); M81.0 Age-related osteoporosis without current pathological fracture; L60.2 Onychogryphosis; B02.9 Zoster without complications; E78.5 Hyperlipidemia, unspecified; Z23 Encounter for immunization | CPT/HCPCS: 90471; 90715; 96127 ==